=== PATIENT | male | born 1955 | race American Indian/Alaskan Native ===

== ENCOUNTER 2020-12-04 10:36 | Emergency (ER) | payer SELFPAY | END 2020-12-04 11:11 | disposition left against medical advice (07) | LOC: ED 10:36 | DX: R73.9 Hyperglycemia, unspecified (principal); Z53.21 Procedure and treatment not carried out due to patient leaving prior to being seen by health care provider ==

== ENCOUNTER 2020-12-04 14:23 | Emergency (ER) | payer MEDICARE ==
[2020-12-04 16:22] VITALS: BP 144/88
--- NOTE | 2020-12-04 17:31 | XRay Report ---
CHEST 2 VIEWS INDICATION: cough. COMPARISON: FINDINGS: Support devices: None. Heart: Within normal limits. Lungs: No acute air space or interstitial disease. Pleura: No significant pleural effusion. No pneumothorax. Additional findings: None. IMPRESSION: 1. No acute findings. Signer Name: Raheel Reaves MD Signed: 12/04/2020 5:27 PM Workstation Name: [id number]
--- NOTE | 2020-12-04 20:03 | Emergency Department Report ---
- General Chief Complaint: Upper Respiratory Infection Stated Complaint: CHEST CONJESTION/BLOOD SUGAR HIGH PUI?: No Source: patient Mode of arrival: Ambulatory Limitations: No Limitations - History of Present Illness Initial Comments: Patient is a 65-year-old -[place] male with a history of hypertension, hyperlipidemia, sleep apnea and hjk-fjdnvva-upptgoibq diabetes and who is up-to-date with his vaccinations including the COVID-19 vaccine, presents to the ED with complaint of acute onset persistent nasal and sinus congestion, frontal sinus pressure, sore throat, persistent dry cough for the last 5 to 6 days. Patient states that he also tested negative for COVID-19 viral infection 24 hours ago but states that his symptoms have been persistent and that he is unabl e to sleep because of worsening cough and congestion. Patient states that he has been taking mwse-vcz-clmteiy decongestants with no relief. Patient denies dizziness, syncope, fever, chills, chest pain, shortness of breath, nausea and vomiting or diarrhea, abdominal pain, headache, change in vision, syncope, dysuria or urinary frequency and urgency or lightheadedness and palpitations. MD Complaint: cough, sore throat, rhinorrhea, nasal congestion, sinus pain -: Sudden, days(s) (5) Severity: moderate Severity scale (0 -10): 4 Quality: aching Consistency: constant Improves With: nothing Worsens With: nothing Context: sick contacts Associated Symptoms: denies other symptoms, headache, rhinorrhea, nasal congestion, sore throat, cough. denies: fever, chills, myalgias, diaphoresis, stiff neck, chest pain, abdominal pain, nausea, vomiting, diarrhea, dysuria, rash, confusion, right sweats, weight loss, epistaxis, hoarseness, ear pain, other Treatments Prior to Arrival: none - Related Data Previous Rx's Medication Instructions Recorded Last Taken Type Azithromycin [Zithromax Z-KARLA] 250 mg PO DAILY #6 tablet 12/04/20 Unknown Rx Benzonatate [Tessalon Perles] 100 mg PO Q8HR #30 capsule 12/04/20 Unknown Rx Cetirizine HCl [Zyrtec 10mg tab] 10 mg PO DAILY #30 tablet 12/04/20 Unknown Rx Ibuprofen [Motrin] 600 mg PO Q8H PRN #30 tablet 12/04/20 Unknown Rx Allergies Allergy/AdvReac Type Severity Reaction Status Date / Time Tetracyclines Allergy Unknown Verified 12/04/20 16:17 ED Review of Systems ROS: Stated complaint: CHEST CONJESTION/BLOOD SUGAR HIGH Other details as noted in HPI Constitutional: denies: chills, fever Eyes: denies: eye pain, eye discharge, vision change ENT: throat pain, congestion, other (Nasal and sinus congestion and pressure). denies: ear pain Respiratory: cough. denies: shortness of breath, wheezing Cardiovascular: denies: chest pain, palpitations Endocrine: no symptoms reported Gastrointestinal: denies: abdominal pain, nausea, diarrhea Genitourinary: denies: urgency, dysuria Musculoskeletal: denies: back pain, joint swelling, arthralgia Skin: denies: rash, lesions Neurological: denies: headache, weakness, paresthesias Psychiatric: denies: anxiety, depression Hematological/Lymphatic: denies: easy bleeding, easy bruising ED Past Medical Hx - Past Medical History Previous Medical History?: Yes Hx Hypertension: Yes Hx Diabetes: Yes Additional medical history: Hyperlipidemia, Sleep apnea - Surgical History Past Surgical History?: No - Social History Smoking Status: Current Every Day Smoker - Medications Home Medications: Home Medications Medication Instructions Recorded Confirmed Last Taken Type Azithromycin [Zithromax Z-KARLA] 250 mg PO DAILY #6 tablet 12/04/20 Unknown Rx Benzonatate [Tessalon Perles] 100 mg PO Q8HR #30 capsule 12/04/20 Unknown Rx Cetirizine HCl [Zyrtec 10mg tab] 10 mg PO DAILY #30 tablet 12/04/20 Unknown Rx Ibuprofen [Motrin] 600 mg PO Q8H PRN #30 tablet 12/04/20 Unknown Rx ED Physical Exam - General Limitations: No Limitations General appearance: alert, in no apparent distress - Head Head exam: Present: atraumatic, normocephalic, normal inspection - Eye Eye exam: Present: normal appearance, PERRL, EOMI Pupils: Present: normal accommodation - ENT ENT exam: Present: normal orophraynx, mucous membranes moist, TM's normal bilaterally, normal external ear exam, other (Grossly congested nasal passages) - Neck Neck exam: Present: normal inspection, full ROM. Absent: tenderness - Respiratory Respiratory exam: Present: normal lung sounds bilaterally. Absent: respiratory distress, wheezes, rales, rhonchi, chest wall tenderness, accessory muscle use, prolonged expiratory - Cardiovascular Cardiovascular Exam: Present: regular rate, normal rhythm, normal heart sounds. Absent: systolic murmur, diastolic murmur, rubs, gallop - GI/Abdominal GI/Abdominal exam: Present: soft, normal bowel sounds. Absent: tenderness, guarding, rebound, hyperactive bowel sounds, hypoactive bowel sounds - Extremities Exam Extremities exam: Present: normal inspection, full ROM, normal capillary refill - Back Exam Back exam: Present: normal inspection, full ROM. Absent: tenderness, CVA tenderness (R), CVA tenderness (L), muscle spasm, paraspinal tenderness, vertebral tenderness - Neurological Exam Neurological exam: Present: alert, oriented X3, CN II-XII intact, normal gait, reflexes normal - Psychiatric Psychiatric exam: Present: normal affect, normal mood - Skin Skin exam: Present: warm, dry, intact, normal color. Absent: rash ED Course Vital Signs 12/04/20 16:18 Temperature 98.7 F Pulse Rate 95 H Respiratory 20 Rate Blood Pressure 144/88 O2 Sat by Pulse 99 Oximetry ED Medical Decision Making - Medical Decision Making This is a 65-year-old -[place] male with a history of hypertension, hyperlipidemia, sleep apnea and udt-vmywhlu-ctigyvxdt diabetes and who is up-to-date with his vaccinations including the COVID-19 vaccine, presents to the ED with complaint of acute onset persistent nasal and sinus congestion, frontal sinus pressure, sore throat, persistent dry cough for the last 5 to 6 days. Patient states that he also tested negative for COVID-19 viral infection 24 hours ago but states that his symptoms have been persistent and that he is unable to sleep because of worsening cough and congestion. Patient states that he has been taking wior-jra-gqhetcq decongestants with no relief. In the ED, patient is alert and oriented x3 and is not in any distress. Patient is hemodynamically stable, and chest x-ray shows no acute cardiopulmonary abnormalities or pneumonitis. Patient the history and physical exam findings, as well as normal chest x-ray, patient symptoms are likely due to a acute upper respiratory infection versus sinusitis versus acute bronchitis. Patient was therefore discharged home on medications and advised to follow-up with his primary care physician in 5 to 7 days for reevaluation. Patient was advised return to the ED immediately if symptoms get worse. - Differential Diagnosis Sinusitis; URI; bronchitis; pneumonia; Critical care attestation.: If time is entered above; I have spent that time in minutes in the direct care of this critically ill patient, excluding procedure time. ED Disposition Clinical Impression: Acute upper respiratory infection Acute bronchitis Qualifiers: Bronchitis organism: other organism Qualified Code(s): J20.8 - Acute bronchitis due to other specified organisms Acute frontal sinusitis, unspecified Qualifiers: Recurrence: non-recurrent Qualified Code(s): J01.10 - Acute frontal sinusitis, unspecified Disposition: DC- TO HOME OR SELFCARE Is pt being admited?: No Does the pt Need Aspirin: No Condition: Stable Instructions: Acute Bronchitis (ED), Sinusitis, Adult, Abjg-pb-Roth, Upper Respiratory Infection, Adult, Ylss-fk-Yiak, Cough, Adult, Tnmt-kc-Scri, Acute Bronchitis, Adult, Mrjc-be-Wvxp Additional Instructions: This chest x-ray shows no acute cardiopulmonary abnormalities or pneumonitis. Therefore take medication with food, drink plenty of fluids and follow-up with your primary care physician in 5 to 7 days for reevaluation. Return to the ED immediately if symptoms get worse. Prescriptions: Ibuprofen [Motrin] 600 mg PO Q8H PRN #30 tablet PRN Reason: Pain Benzonatate [Tessalon Perles] 100 mg PO Q8HR #30 capsule Azithromycin [Zithromax Z-KARLA] 250 mg PO DAILY #6 tablet Cetirizine HCl [Zyrtec 10mg tab] 10 mg PO DAILY #30 tablet Referrals: [facility] [Provider Group] - 7-10 days Time of Disposition: 20:06 Print Language: [place] ISLAND[place]
== END 2020-12-04 20:20 | disposition home or self-care (01) ==
LOC: ED 14:23
DX: J20.9 Acute bronchitis, unspecified (principal); J01.10 Acute frontal sinusitis, unspecified; I10 Essential (primary) hypertension; E11.9 Type 2 diabetes mellitus without complications; F17.200 Nicotine dependence, unspecified, uncomplicated; Z79.1 Long term (current) use of non-steroidal anti-inflammatories (NSAID); Z79.2 Long term (current) use of antibiotics; Z79.899 Other long term (current) drug therapy; Z88.8 Allergy status to other drugs, medicaments and biological substances
CPT/HCPCS: 71046

== ENCOUNTER 2020-12-26 14:39 | Emergency (ER) | payer MEDICARE ==
[2020-12-26 16:25] VITALS: BP 149/103
[2020-12-26] MEDS ORDERED: ASPIRIN 325 MG TAB PO ONE (16:26)
--- NOTE | 2020-12-26 17:00 | XRay Report ---
CHEST 2 VIEWS INDICATION / CLINICAL INFORMATION: chest pain. COMPARISON: 12/04/2020 FINDINGS: SUPPORT DEVICES: None. HEART / MEDIASTINUM: No significant abnormality. LUNGS / PLEURA: No significant pulmonary or pleural abnormality. No pneumothorax. ADDITIONAL FINDINGS: No significant additional findings. IMPRESSION: 1. No acute findings. Signer Name: Moustapha Sherman MD Signed: 12/26/2020 4:55 PM Workstation Name: [id number]
[2020-12-26 17:09] LABS: Basophils # (Auto) 0.1 K/mm3 (0.0-0.1); Basophils % (Auto) 1.3 % (0.0-1.8); Eosinophils # (Auto) 0.1 K/mm3 (0.0-0.4); Hematocrit 45.8 % (35.5-45.6); Hemoglobin 15.7 gm/dl (11.8-15.2); Lymphocytes # (Auto) 1.9 K/mm3 (1.2-5.4); Lymphocytes % (Auto) 33.1 % (13.4-35.0); Mean Corpuscular HGB Conc 34 % (32-34); Mean Corpuscular Volume 90 fl (84-94); Monocytes # (Auto) 0.7 K/mm3 (0.0-0.8); Platelet Count 314 K/mm3 (140-440); Red Blood Count 5.11 M/mm3 (3.65-5.03); Red Cell Distribution Width 14.6 % (13.2-15.2)
[2020-12-26 17:28] LABS: Alanine Aminotransferase 12 units/L (7-56); Albumin 4.2 g/dL (3.9-5); BUN/Creatinine Ratio 19; Blood Urea Nitrogen 21 mg/dL (9-20); Calcium 9.7 mg/dL (8.4-10.2); Hemolysis Index 27
[2020-12-26] MEDS ORDERED: BENZONATATE 100 MG CAP PO ONE (21:03)
[2020-12-26] MEDS ORDERED: IPRATROPIUM/ALBUTEROL SULFATE 3 ML AMPUL.NEB IH ONE (21:03)
--- NOTE | 2020-12-26 21:23 | Emergency Department Report ---
HPI - General Chief Complaint: High BP Time Seen by Provider: 12/26/20 20:51 - HPI HPI: This is a 65-year-old -[place] male who presents to the emergency department with complaint of a lingering dry cough and some wheezing. The patient is also requesting medication refill of his blood pressure, cholesterol, and diabetes medications. The patient was seen here on 12/04 and diagnosed with an upper respiratory infection, bronchitis and sinusitis. The patient says that his prescriptions were in his son's car and he forgot to take them out prior to going to [place]. Apparently the patient's medications were also in the car. He has a history of hypertension, high cholesterol and diabetes. His primary care physician is Dr. Mckinney, but he has not seen them regarding his symptoms. He denies any chest pain, fever, lower extremity swelling, nausea, vomiting or diaphoresis. He is a tobacco smoker, but denies any illicit drug use. ED Past Medical Hx - Past Medical History Previous Medical History?: Yes Hx Hypertension: Yes Hx Diabetes: Yes Additional medical history: Hyperlipidemia, Sleep apnea - Surgical History Past Surgical History?: No Additional Surgical History: denies - Social History Smoking Status: Current Every Day Smoker Substance Use Type: Alcohol - Medications Home Medications: Home Medications Medication Instructions Recorded Confirmed Last Taken Type Azithromycin [Zithromax Z-KARLA] 250 mg PO DAILY #6 tablet 12/04/20 Unknown Rx Cetirizine HCl [Zyrtec 10mg tab] 10 mg PO DAILY #30 tablet 12/04/20 Unknown Rx Ibuprofen [Motrin] 600 mg PO Q8H PRN #30 tablet 12/04/20 Unknown Rx Albuterol Mdi (or & Nicu Only) 2 puff IH QID PRN #8.5 gram 12/26/20 Unknown Rx [ProAir HFA Inhaler] AtorvaSTATin [Lipitor] 40 mg PO QHS #30 tab 12/26/20 Unknown Rx Benzonatate [Tessalon Perles] 100 mg PO Q8HR #30 capsule 12/26/20 Unknown Rx Glimepiride [Amaryl] 2 mg PO QAM #30 tablet 12/26/20 Unknown Rx Losartan [Cozaar] 100 mg PO QDAY #30 tablet 12/26/20 Unknown Rx Pioglitazone [Actos] 15 mg PO QDAY #30 tablet 07/15/21 Unknown Rx ED Review of Systems ROS: Stated complaint: RX REILL Other details as noted in HPI Comment: All other systems reviewed and negative Constitutional: denies: chills, fever Eyes: denies: eye pain, vision change ENT: denies: ear pain, throat pain Respiratory: cough, wheezing Cardiovascular: denies: chest pain, palpitations Gastrointestinal: denies: abdominal pain, vomiting Genitourinary: denies: dysuria, discharge Musculoskeletal: denies: back pain, arthralgia Skin: denies: rash, lesions Neurological: denies: headache, weakness Physical Exam - Physical Exam Vital Signs: Vital Signs 12/26/20 16:24 Temperature 98.7 F Pulse Rate 81 Respiratory 15 Rate Blood Pressure 149/103 O2 Sat by Pulse 98 Oximetry Physical Exam: GENERAL: The patient is well-developed well-nourished. HENT: Normocephalic. Atraumatic. Patient has moist mucous membranes. EYES: Extraocular motions are intact. NECK: Supple. Trachea is midline. CHEST/LUNGS: Mild expiratory wheezing. No tachypnea or accessory muscle use. A dry cough heard during examination. There is no respiratory distress noted. HEART/CARDIOVASCULAR: Regular. There is no tachycardia. There is no murmur. ABDOMEN: Abdomen is soft, nontender. Patient has normal bowel sounds. There is no abdominal distention. SKIN: Skin is warm and dry. NEURO: The patient is awake, alert, and oriented. The patient is cooperative. The patient has no focal neurologic deficits. Normal speech. MUSCULOSKELETAL: There is no tenderness or deformity. There is no limitation range of motion. ED Course Vital Signs 12/26/20 16:24 Temperature 98.7 F Pulse Rate 81 Respiratory 15 Rate Blood Pressure 149/103 O2 Sat by Pulse 98 Oximetry ED Medical Decision Making - Lab Data Result diagrams: 12/26/20 16:50 12/26/20 16:50 Lab Results 12/26/20 12/26/20 12/26/20 Range/Units 16:50 16:50 19:26 WBC 5.8 (4.5-11.0) K/mm3 RBC 5.11 H (3.65-5.03) M/mm3 Hgb 15.7 H (11.8-15.2) gm/dl Hct 45.8 H (35.5-45.6) % MCV 90 (84-94) fl MCH 31 (28-32) pg MCHC 34 (32-34) % RDW 14.6 (13.2-15.2) % Plt Count 314 (140-440) K/mm3 Lymph % (Auto) 33.1 (13.4-35.0) % [place] % (Auto) 12.0 H (0.0-7.3) % Eos % (Auto) 2.0 (0.0-4.3) % Baso % (Auto) 1.3 (0.0-1.8) % Lymph # (Auto) 1.9 (1.2-5.4) K/mm3 [place] # (Auto) 0.7 (0.0-0.8) K/mm3 Eos # (Auto) 0.1 (0.0-0.4) K/mm3 Baso # (Auto) 0.1 (0.0-0.1) K/mm3 Seg Neutrophils % 51.6 (40.0-70.0) % Seg Neutrophils # 3.0 (1.8-7.7) K/mm3 Sodium 136 L (137-145) mmol/L Potassium 4.4 (3.6-5.0) mmol/L Chloride 98.0 (98-107) mmol/L Carbon Dioxide 29 (22-30) mmol/L Anion Gap 13 mmol/L BUN 21 H (9-20) mg/dL Creatinine 1.1 (0.8-1.3) mg/dL Estimated GFR > 60 ml/min BUN/Creatinine Ratio 19 % Glucose 273 H (75-100) mg/dL Calcium 9.7 (8.4-10.2) mg/dL Total Bilirubin 0.20 (0.1-1.2) mg/dL AST 15 (5-40) units/L ALT 12 (7-56) units/L Alkaline Phosphatase 79 (35-129) units/L Troponin T < 0.010 < 0.010 (0.00-0.029) ng/mL Total Protein 6.9 (6.3-8.2) g/dL Albumin 4.2 (3.9-5) g/dL Albumin/Globulin Ratio 1.6 % - EKG Data -: EKG Interpreted by Nh EKG shows normal: sinus rhythm (PVCs), axis, intervals (Prolonged QTc), QRS complexes, ST-T waves Rate: normal - EKG Data When compared to previous EKG there are: previous EKG unavailable Interpretation: other (Sinus rhythm at 79 bpm, PVCs, prolonged QTC. No ST elevation [place].) - Radiology Data Radiology results: image reviewed interpreted by me: Chest x-ray does not show any acute process. There are no pleural effusions, obvious pneumonia and there is no pneumothorax. No widened mediastinum. - Medical Decision Making This patient presents to the emergency department with the complaint of some intermittent shortness of breath, a dry cough, occasional wheezing. He was seen here on 12/04 for similar symptoms and was diagnosed at that time with bronchitis, sinusitis and an upper respiratory infection. However he never was able to fill those medications and then lost the prescriptions. He also either ran out of, or lost, his regular medications including cholesterol, diabetes and hypertension medications. Chest x-ray does not show any pneumonia, pleural effusions, pneumothorax, widened mediastinum, or any other acute process. On examination the patient has an occasional dry cough. There is some mild expiratory wheezing. No tachypnea or accessory muscle use. The patient does not appear in any respiratory or acute distress. An EKG was done through triage that does not have any morphology consistent with ST elevation myocardial infarction. Labs have been mostly unremarkable including CBC, metabolic panel, negative troponins x2, except for some hyperglycemia with a blood sugar of 270. There is no significant elevation in the anion gap and the patient does not appear in diabetic ketoacidosis. He was given a breathing treatment and upon reevaluation says he is feeling improved. Vital signs reassuring throughout his ED course including being afebrile. For these reasons the patient appears safe for discharge home at this time. He has good outpatient follow-up with primary care. I have given the patient a prescription for his antihypertensive, diabetes, and cholesterol medications. He is also been given a prescription for a cough medication and an albuterol inhaler. The patient will return to the emergency department with any worsening of her symptoms or with any acute distress. Critical Care Time: No Critical care attestation.: If time is entered above; I have spent that time in minutes in the direct care of this critically ill patient, excluding procedure time. ED Disposition Clinical Impression: Bronchitis, Hyperglycemia, Hypertension, Medication refill Disposition: TO HOME OR SELFCARE Is pt being admited?: No Condition: Stable Instructions: Hyperglycemia, Chronic Bronchitis, Adult, Hypertension, Adult, Ch ronic Bronchitis (ED), Hypertension (ED) Additional Instructions: Please follow-up with your primary care physician in the next few days. I am refilling your blood pressure medication. Please try to stay away from foods that are high in salt and caffeinated products. Keep a blood pressure log. I am refilling your diabetes medication. Please try to stay away from foods that are high in sugar, carbohydrates and starches. Keep a blood sugar log. Please try and quit smoking. Return to the emergency department with any worsening of your symptoms, new or concerning symptoms not addressed during this current emergency department visit, or with any acute distress. Prescriptions: AtorvaSTATin [Lipitor] 40 mg PO QHS #30 tab Pioglitazone [Actos] 15 mg PO QDAY #30 tablet Glimepiride [Amaryl] 2 mg PO QAM #30 tablet Losartan [Cozaar] 100 mg PO QDAY #30 tablet Albuterol Mdi (or & Nicu Only) [ProAir HFA Inhaler] 2 puff IH QID PRN #8.5 gram PRN Reason: Shortness Of Breath Benzonatate [Tessalon Perles] 100 mg PO Q8HR #30 capsule Referrals: PRIMARY CARE, [Primary Care Provider] - 2-3 Days Time of Disposition: 22:44
--- NOTE | 2020-12-27 10:17 | Electrocardiograph Report ---
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
--- NOTE | 2020-12-27 10:18 | Electrocardiograph Report ---
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
== END 2020-12-26 23:47 | disposition home or self-care (01) ==
LOC: ED 14:39
DX: J40 Bronchitis, not specified as acute or chronic (principal); E11.65 Type 2 diabetes mellitus with hyperglycemia; I10 Essential (primary) hypertension; Z76.0 Encounter for issue of repeat prescription; F17.200 Nicotine dependence, unspecified, uncomplicated; Z79.1 Long term (current) use of non-steroidal anti-inflammatories (NSAID); Z79.899 Other long term (current) drug therapy; Z88.8 Allergy status to other drugs, medicaments and biological substances
CPT/HCPCS: 36415; 71046; 80053; 84484; 85025; 93005; 94640